=== PATIENT | female | born 1990 | race African-American/Black ===

== ENCOUNTER 2023-06-06 11:28 | Inpatient (IN) | payer OTHER ==
[~2023-06-06] VITALS: Ht 175.3 cm; Wt 64.4 kg
[2023-06-06 12:24] LABS: CREATININE 1.1 mg/dL (0.6-1.3); POTASSIUM 3.8 mmol/L (3.5-5.1)
[2023-06-06 12:31] LABS: ALBUMIN 3.7 g/dL (3.4-5.0); BILIRUBIN,DIRECT 0.4 mg/dL (0.0-0.2); BILIRUBIN,TOTAL 0.6 mg/dL (0.2-1.0); TOTAL PROTEIN, SERUM 9.2 g/dL (6.4-8.2)
[2023-06-06 12:33] LABS: BASOPHILS % (AUTO) 0.6 % (0.0-2.0); CALCIUM, SERUM 15.3 mg/dL (8.5-10.1); EOSINOPHILS # (AUTO) 0.1 K/uL (0.0-0.7); EOSINOPHILS % (AUTO) 0.8 % (0.0-6.0); HEMATOCRIT 33 % (33-45); LYMPHOCYTES # (AUTO) 2.8 K/uL (0.8-4.8); MEAN CORPUSCULAR HEMOGLOBIN 33 PG (26.0-33.0); MEAN CORPUSCULAR HGB CONC 33 g/dl (31.0-36.0); MEAN CORPUSCULAR VOLUME 100 fL (82-100); MONOCYTES # (AUTO) 0.5 K/uL (0.1-1.30); MONOCYTES % (AUTO) 6.4 % (2.0-12.0); NEUTROPHILS # (AUTO) 4.1 K/uL (1.8-8.9); NEUTROPHILS % (AUTO) 54.2 % (43.0-81.0); PLATELET COUNT (AUTO) 223 K/uL (150-450); RED BLOOD CELL COUNT(AUTO) 3.31 MIL/uL (4.0-5.2); RED CELL DISTRIBUTION WIDTH 13.5 % (11.5-15.0); WHITE BLOOD COUNT (AUTO) 7.5 K/uL (4.3-11.0)
[2023-06-06] MEDS: IV NS 0.9% 1,000 ML BAG IV ONE (12:50)
[2023-06-06] MEDS ORDERED: ACETAMINOPHEN 325 MG TABLET PO PRN (13:30)
[2023-06-06] MEDS ORDERED: MAG HYDROX/AL HYDROX/SIMETH 30 ML UDC PO PRN (13:30)
[2023-06-06] MEDS ORDERED: ZOLPIDEM TARTRATE 5 MG TABLET PO PRN (13:30)
[2023-06-06] MEDS ORDERED: Z GUARD REMEDY 4 OZ OINT TP PRN (13:30)
[2023-06-06] MEDS ORDERED: ONDANSETRON HCL/PF 4 MG/2 ML VIAL IVP PRN (13:30)
[2023-06-06] MEDS ORDERED: MAGNESIUM HYDROXIDE 30 ML UDC PO PRN (13:30)
[2023-06-06] MEDS ORDERED: ERGO500093 PO (13:34)
[2023-06-06] MEDS ORDERED: ZINC220C6 PO (13:34)
[2023-06-06] MEDS ORDERED: PANT40TA2 PO (13:34)
[2023-06-06] MEDS ORDERED: RIFA550T PO (13:34)
[2023-06-06] MEDS ORDERED: ONDA4TAB5 PO (13:34)
[2023-06-06] MEDS ORDERED: TAMS-12 PO (13:34)
[2023-06-06] MEDS ORDERED: THIA100T88 PO (13:34)
[2023-06-06] MEDS ORDERED: FOLI0.8T3 PO (13:34)
[2023-06-06] MEDS ORDERED: MULT-754 PO (13:34)
[2023-06-06] MEDS ORDERED: LACT10SO3 PO (13:34)
[2023-06-06] MEDS ORDERED: OLAN2.5T3 PO (13:34)
[2023-06-06] MEDS ORDERED: FERR325T23 PO (13:34)
[2023-06-06 14:20] LABS: APPEARANCE,URINE CLEAR (CLEAR); BILIRUBIN,URINE NEGATIVE (NEGATIVE); BLOOD, URINE NEGATIVE Ery/uL (NEGATIVE); COLOR,URINE YELLOW (YELLOW); KETONES,URINE NEGATIVE (NEGATIVE); LEUKOCYTE ESTERASE ,URINE 2+ (NEGATIVE); NITRITE, URINE NEGATIVE (NEGATIVE); PH,URINE 6.5 (5.0-8.0); PROTEIN,URINE NEGATIVE (NEGATIVE); UGLUCOSE NEGATIVE (NEGATIVE); UROBILINOGEN,URINE 0.2 EU/dL (0.2)
[2023-06-06 14:51] LABS: ADD URINE CULTURE YES; BACTERIA,URINE 1+ /HPF (None Seen); RBC,URINE NONE SEEN /HPF (0-2)
[2023-06-06] MEDS: FERROUS SULFATE (325 MG) 325 MG/TAB TABLET PO SCH (18:03)
[2023-06-06] MEDS: LACTULOSE 10 G/15 ML UDC (PYXIS) PO SCH (18:03)
[2023-06-06] MEDS: PANTOPRAZOLE 40 MG TABLET.DR PO SCH (18:05)
[2023-06-06] MEDS: CEFTRIAXONE 1 G in IV D5W 50 ML IV SCH (19:17)
[2023-06-06 20:00] VITALS: BP 115/93; TEMP 98.6; O2SAT 99
[2023-06-06] MEDS: OLANZAPINE 2.5 MG TABLET PO SCH (21:19)
[2023-06-06] MEDS: RIFAXIMIN 550 MG TABLET PO SCH (21:19)
[2023-06-07] MEDS: LACTULOSE 10 G/15 ML UDC (PYXIS) PO SCH ×4 (00:25→17:51)
[2023-06-07 05:53] LABS: BASOPHILS % (AUTO) 0.4 % (0.0-2.0); EOSINOPHILS # (AUTO) 0.1 K/uL (0.0-0.7); HEMATOCRIT 29 % (33-45); HEMOGLOBIN 9.7 g/dL (11.5-14.8); LYMPHOCYTES # (AUTO) 2.2 K/uL (0.8-4.8); LYMPHOCYTES % (AUTO) 36.2 % (20.0-44.0); MEAN CORPUSCULAR HEMOGLOBIN 34 PG (26.0-33.0); MEAN CORPUSCULAR HGB CONC 34 g/dl (31.0-36.0); MEAN CORPUSCULAR VOLUME 100 fL (82-100); MONOCYTES # (AUTO) 0.5 K/uL (0.1-1.30); MONOCYTES % (AUTO) 7.6 % (2.0-12.0); NEUTROPHILS # (AUTO) 3.3 K/uL (1.8-8.9); NEUTROPHILS % (AUTO) 54.8 % (43.0-81.0); PLATELET COUNT (AUTO) 165 K/uL (150-450); RED BLOOD CELL COUNT(AUTO) 2.88 MIL/uL (4.0-5.2); RED CELL DISTRIBUTION WIDTH 13.1 % (11.5-15.0)
[2023-06-07 06:24] LABS: ALBUMIN 3.1 g/dL (3.4-5.0); BILIRUBIN,TOTAL 0.5 mg/dL (0.2-1.0); CREATININE 0.9 mg/dL (0.6-1.3); MAGNESIUM 1.6 mg/dL (1.8-2.4); PHOSPHORUS 3.8 mg/dL (2.5-4.9); POTASSIUM 3.4 mmol/L (3.5-5.1); TOTAL PROTEIN, SERUM 7.7 g/dL (6.4-8.2)
[2023-06-07 06:26] LABS: CALCIUM, SERUM 14.1 mg/dL (8.5-10.1)
[2023-06-07] MEDS: IV NS 0.9% 1,000 ML IV PRN ×2 (06:43→23:35)
[2023-06-07 07:00] VITALS: BP 105/74; TEMP 98.8; O2SAT 100
[2023-06-07] MEDS: FERROUS SULFATE (325 MG) 325 MG/TAB TABLET PO SCH ×2 (08:49→17:43)
[2023-06-07] MEDS: RIFAXIMIN 550 MG TABLET PO SCH ×2 (08:49→21:12)
[2023-06-07] MEDS: OLANZAPINE 2.5 MG TABLET PO SCH ×2 (08:49→21:12)
[2023-06-07] MEDS: PANTOPRAZOLE 40 MG TABLET.DR PO SCH ×2 (08:49→16:44)
[2023-06-07] MEDS: MULTIVITAMINS,THERAGRAN 1 UDTAB TABLET PO SCH (08:50)
[2023-06-07] MEDS: THIAMINE HCL 100 MG TABLET PO SCH (08:50)
[2023-06-07] MEDS: TAMSULOSIN 0.4 MG CAP.SR.24H PO SCH (08:50)
[2023-06-07] MEDS: FOLIC ACID 1 MG TABLET PO SCH (08:50)
[2023-06-07] MEDS ORDERED: POTASSIUM CHLORIDE 10 MEQ TABLET.SA PO ONE (09:00)
[2023-06-07] MEDS ORDERED: MAGNESIUM OXIDE 400 MG TABLET PO ONE (11:30)
[2023-06-07 14:47] LABS: CREATININE 0.9 mg/dL (0.6-1.3); POTASSIUM 3.6 mmol/L (3.5-5.1)
[2023-06-07 15:02] LABS: CALCIUM, SERUM 13.4 mg/dL (8.5-10.1)
[2023-06-07 16:00] VITALS: BP 119/93; TEMP 98.6; O2SAT 99
[2023-06-07] MEDS: CEFTRIAXONE 1 G in IV D5W 50 ML IV SCH (17:43)
[2023-06-07 20:00] VITALS: BP 114/69; TEMP 98.7; O2SAT 99
[2023-06-08] MEDS: LACTULOSE 10 G/15 ML UDC (PYXIS) PO SCH ×4 (01:38→17:27)
[2023-06-08 06:06] LABS: PTH, INTACT 12 pg/mL (15-65)
[2023-06-08 07:00] VITALS: BP 114/86; TEMP 98.4; O2SAT 100
[2023-06-08 07:00] LABS: BASOPHILS % (AUTO) 0.3 % (0.0-2.0); EOSINOPHILS % (AUTO) 0.8 % (0.0-6.0); HEMATOCRIT 28 % (33-45); HEMOGLOBIN 9.4 g/dL (11.5-14.8); LYMPHOCYTES # (AUTO) 1.9 K/uL (0.8-4.8); MEAN CORPUSCULAR HEMOGLOBIN 34 PG (26.0-33.0); MEAN CORPUSCULAR HGB CONC 34 g/dl (31.0-36.0); MEAN CORPUSCULAR VOLUME 100 fL (82-100); MONOCYTES # (AUTO) 0.4 K/uL (0.1-1.30); MONOCYTES % (AUTO) 7.5 % (2.0-12.0); NEUTROPHILS # (AUTO) 2.6 K/uL (1.8-8.9); NEUTROPHILS % (AUTO) 52.4 % (43.0-81.0); PLATELET COUNT (AUTO) 140 K/uL (150-450); RED CELL DISTRIBUTION WIDTH 13.2 % (11.5-15.0)
[2023-06-08 07:27] LABS: CREATINE KINASE, TOTAL 13 U/L (26-192)
[2023-06-08] MEDS: PANTOPRAZOLE 40 MG TABLET.DR PO SCH ×2 (07:33→16:32)
[2023-06-08 07:37] LABS: ALANINE AMINOTRANSFERASE 13 U/L (12-78); ALKALINE PHOSPHATASE 74 U/L (46-116); ASPARTATE AMINOTRANSFERASE 17 U/L (15-37); BILIRUBIN,TOTAL 0.4 mg/dL (0.2-1.0); CARBON DIOXIDE 23 mmol/L (21-32); GLUCOSE 97 mg/dL (74-106); MAGNESIUM 1.7 mg/dL (1.8-2.4); PHOSPHORUS 3.6 mg/dL (2.5-4.9); TOTAL PROTEIN, SERUM 7.4 g/dL (6.4-8.2); UREA NITROGEN, BLOOD 15 mg/dL (7-18)
[2023-06-08 07:47] LABS: CALCIUM, SERUM 13.6 mg/dL (8.5-10.1)
[2023-06-08 08:14] LABS: CHLORIDE 105 mmol/L (98-107); POTASSIUM 3.3 mmol/L (3.5-5.1); SODIUM SERUM 138 mmol/L (136-145)
[2023-06-08] MEDS: FERROUS SULFATE (325 MG) 325 MG/TAB TABLET PO SCH ×2 (09:57→16:46)
[2023-06-08] MEDS: FOLIC ACID 1 MG TABLET PO SCH (09:57)
[2023-06-08] MEDS: TAMSULOSIN 0.4 MG CAP.SR.24H PO SCH (09:57)
[2023-06-08] MEDS: MULTIVITAMINS,THERAGRAN 1 UDTAB TABLET PO SCH (09:57)
[2023-06-08] MEDS: OLANZAPINE 2.5 MG TABLET PO SCH ×2 (09:58→20:24)
[2023-06-08] MEDS: THIAMINE HCL 100 MG TABLET PO SCH (09:58)
[2023-06-08] MEDS: RIFAXIMIN 550 MG TABLET PO SCH ×2 (09:58→20:24)
[2023-06-08] MEDS ORDERED: POTASSIUM CHLORIDE 20 MEQ TAB.PRT.SR PO ONE (12:00)
[2023-06-08] MEDS ORDERED: MAGNESIUM OXIDE 400 MG TABLET PO ONE (12:00)
[2023-06-08] MEDS: IV NS 0.9% 1,000 ML IV PRN (14:02)
[2023-06-08 16:00] VITALS: BP 103/70; TEMP 98.2; O2SAT 99
[2023-06-08] MEDS: CEFTRIAXONE 1 G in IV D5W 50 ML IV SCH (16:46)
[2023-06-08 20:00] VITALS: BP 113/93; TEMP 98.6; O2SAT 99
[2023-06-09] MEDS: LACTULOSE 10 G/15 ML UDC (PYXIS) PO SCH ×5 (01:41→23:41)
[2023-06-09] MEDS: IV NS 0.9% 1,000 ML IV PRN ×2 (04:14→23:51)
[2023-06-09 06:07] LABS: *SPE A/G RATIO 0.8 (0.7-1.7); *SPE ALBUMIN 3.1 g/dL (2.9-4.4); *SPE ALPHA-1-GLOBULIN 0.3 g/dL (0.0-0.4); *SPE ALPHA-2-GLOBULIN 0.6 g/dL (0.4-1.0); *SPE GLOBULIN, TOTAL 4.1 g/dL (2.2-3.9); *SPE M-SPIKE Not Observed g/dL (Not Observed); *SPE PROTEIN TOTAL 7.2 g/dL (6.0-8.5); *SPEGAMMA GLOBULIN 2.2 g/dL (0.4-1.8)
[2023-06-09 06:48] LABS: BASOPHILS % (AUTO) 0.2 % (0.0-2.0); EOSINOPHILS # (AUTO) 0.1 K/uL (0.0-0.7); EOSINOPHILS % (AUTO) 1.2 % (0.0-6.0); HEMATOCRIT 28 % (33-45); HEMOGLOBIN 9.3 g/dL (11.5-14.8); LYMPHOCYTES # (AUTO) 1.9 K/uL (0.8-4.8); LYMPHOCYTES % (AUTO) 36.9 % (20.0-44.0); MEAN CORPUSCULAR HEMOGLOBIN 34 PG (26.0-33.0); MEAN CORPUSCULAR HGB CONC 33 g/dl (31.0-36.0); MEAN CORPUSCULAR VOLUME 101 fL (82-100); MONOCYTES # (AUTO) 0.4 K/uL (0.1-1.30); MONOCYTES % (AUTO) 7.8 % (2.0-12.0); NEUTROPHILS # (AUTO) 2.8 K/uL (1.8-8.9); NEUTROPHILS % (AUTO) 53.9 % (43.0-81.0); PLATELET COUNT (AUTO) 145 K/uL (150-450); RED BLOOD CELL COUNT(AUTO) 2.78 MIL/uL (4.0-5.2); WHITE BLOOD COUNT (AUTO) 5.1 K/uL (4.3-11.0)
[2023-06-09 07:07] LABS: IMMUNOGLOBULIN A, SERUM 318 mg/dL (87-352); IMMUNOGLOBULIN G, SERUM 1974 mg/dL (586-1602); IMMUNOGLOBULIN M, SERUM 212 mg/dL (26-217)
[2023-06-09 07:20] LABS: ALBUMIN 3.1 g/dL (3.4-5.0); BILIRUBIN,TOTAL 0.4 mg/dL (0.2-1.0); TOTAL PROTEIN, SERUM 7.6 g/dL (6.4-8.2)
[2023-06-09 07:30] VITALS: BP 120/93; TEMP 98.6; O2SAT 100
[2023-06-09] MEDS: PANTOPRAZOLE 40 MG TABLET.DR PO SCH ×2 (07:40→16:29)
[2023-06-09] MEDS: MULTIVITAMINS,THERAGRAN 1 UDTAB TABLET PO SCH (08:08)
[2023-06-09] MEDS: TAMSULOSIN 0.4 MG CAP.SR.24H PO SCH (08:08)
[2023-06-09] MEDS: FERROUS SULFATE (325 MG) 325 MG/TAB TABLET PO SCH ×2 (08:08→16:29)
[2023-06-09] MEDS: OLANZAPINE 2.5 MG TABLET PO SCH ×2 (08:08→21:41)
[2023-06-09] MEDS: RIFAXIMIN 550 MG TABLET PO SCH ×2 (08:08→21:41)
[2023-06-09] MEDS: THIAMINE HCL 100 MG TABLET PO SCH (08:08)
[2023-06-09] MEDS: FOLIC ACID 1 MG TABLET PO SCH (08:10)
[2023-06-09 08:16] LABS: POTASSIUM 3.5 mmol/L (3.5-5.1)
[2023-06-09 08:40] LABS: CREATININE 1.1 mg/dL (0.6-1.3)
[2023-06-09] MEDS ORDERED: PAMIDRONATE 90 MG in IV NS 0.9% 500 ML IV ONE (10:30)
[2023-06-09] MEDS: CEFTRIAXONE 1 G in IV D5W 50 ML IV SCH (16:30)
[2023-06-09 20:00] VITALS: BP 120/94; TEMP 98.6; O2SAT 100
[2023-06-10] MEDS: LACTULOSE 10 G/15 ML UDC (PYXIS) PO SCH ×3 (06:42→17:22)
[2023-06-10 06:53] LABS: BASOPHILS % (AUTO) 0.2 % (0.0-2.0); EOSINOPHILS # (AUTO) 0.1 K/uL (0.0-0.7); EOSINOPHILS % (AUTO) 1.2 % (0.0-6.0); HEMATOCRIT 27 % (33-45); HEMOGLOBIN 9.1 g/dL (11.5-14.8); LYMPHOCYTES # (AUTO) 1.1 K/uL (0.8-4.8); LYMPHOCYTES % (AUTO) 24.4 % (20.0-44.0); MEAN CORPUSCULAR HEMOGLOBIN 34 PG (26.0-33.0); MEAN CORPUSCULAR HGB CONC 34 g/dl (31.0-36.0); MEAN CORPUSCULAR VOLUME 100 fL (82-100); MONOCYTES # (AUTO) 0.3 K/uL (0.1-1.30); MONOCYTES % (AUTO) 7.4 % (2.0-12.0); NEUTROPHILS # (AUTO) 3.1 K/uL (1.8-8.9); NEUTROPHILS % (AUTO) 66.8 % (43.0-81.0); PLATELET COUNT (AUTO) 126 K/uL (150-450); RED BLOOD CELL COUNT(AUTO) 2.71 MIL/uL (4.0-5.2); RED CELL DISTRIBUTION WIDTH 12.8 % (11.5-15.0); WHITE BLOOD COUNT (AUTO) 4.7 K/uL (4.3-11.0)
[2023-06-10 07:06] LABS: CALCIUM, SERUM 12.4 mg/dL (8.5-10.1); MAGNESIUM 1.5 mg/dL (1.8-2.4); PHOSPHORUS 3.3 mg/dL (2.5-4.9); POTASSIUM 3.3 mmol/L (3.5-5.1)
[2023-06-10] MEDS ORDERED: POTASSIUM CHLORIDE 20 MEQ TAB.PRT.SR PO ONE (07:30)
[2023-06-10] MEDS ORDERED: MAGNESIUM OXIDE 400 MG TABLET PO ONE (07:30)
[2023-06-10 08:00] VITALS: BP 122/97; TEMP 98.4; O2SAT 97
[2023-06-10] MEDS: PANTOPRAZOLE 40 MG TABLET.DR PO SCH ×2 (08:27→16:30)
[2023-06-10] MEDS: TAMSULOSIN 0.4 MG CAP.SR.24H PO SCH (08:27)
[2023-06-10] MEDS: THIAMINE HCL 100 MG TABLET PO SCH (08:27)
[2023-06-10] MEDS: FERROUS SULFATE (325 MG) 325 MG/TAB TABLET PO SCH ×2 (08:27→16:30)
[2023-06-10] MEDS: MULTIVITAMINS,THERAGRAN 1 UDTAB TABLET PO SCH (08:27)
[2023-06-10] MEDS: FOLIC ACID 1 MG TABLET PO SCH (08:27)
[2023-06-10] MEDS: OLANZAPINE 2.5 MG TABLET PO SCH ×2 (08:27→20:09)
[2023-06-10] MEDS: RIFAXIMIN 550 MG TABLET PO SCH ×2 (08:30→20:09)
[2023-06-10 11:09] LABS: CALCITRIOL VIT D,1, 25 DIHYDRO 6.4 pg/mL (24.8-81.5); VIT D, 25-HYDROXY 27.4 ng/mL (30.0-100.0)
[2023-06-10 12:07] LABS: FREE KAPPA LT CHAINS SERUM 60.7 mg/L (3.3-19.4); FREE LAMBDA LT CHAIN SERUM 21.1 mg/L (5.7-26.3); KAPPA/LAMBDA RATIO SERUM 2.88 (0.26-1.65)
[2023-06-10] MEDS: CHOLECALCIFEROL 1,000 UNIT TABLET (VIT D3) PO SCH (12:32)
[2023-06-10] MEDS: IV NS 0.9% 1,000 ML IV PRN (13:18)
[2023-06-10 16:00] VITALS: BP 120/84; TEMP 98.4; O2SAT 98
[2023-06-10] MEDS: CEFTRIAXONE 1 G in IV D5W 50 ML IV SCH (16:30)
[2023-06-10 20:00] VITALS: BP 121/92; TEMP 98.6; O2SAT 98
[2023-06-11] MEDS: LACTULOSE 10 G/15 ML UDC (PYXIS) PO SCH ×4 (00:22→17:02)
[2023-06-11] MEDS: IV NS 0.9% 1,000 ML IV PRN ×2 (04:26→21:18)
[2023-06-11 06:25] LABS: BASOPHILS % (AUTO) 0.4 % (0.0-2.0); EOSINOPHILS # (AUTO) 0.1 K/uL (0.0-0.7); EOSINOPHILS % (AUTO) 1.9 % (0.0-6.0); HEMATOCRIT 26 % (33-45); HEMOGLOBIN 8.9 g/dL (11.5-14.8); LYMPHOCYTES # (AUTO) 1.3 K/uL (0.8-4.8); LYMPHOCYTES % (AUTO) 36.6 % (20.0-44.0); MEAN CORPUSCULAR HEMOGLOBIN 34 PG (26.0-33.0); MEAN CORPUSCULAR HGB CONC 34 g/dl (31.0-36.0); MEAN CORPUSCULAR VOLUME 99 fL (82-100); MONOCYTES # (AUTO) 0.3 K/uL (0.1-1.30); MONOCYTES % (AUTO) 9.6 % (2.0-12.0); NEUTROPHILS # (AUTO) 1.8 K/uL (1.8-8.9); NEUTROPHILS % (AUTO) 51.5 % (43.0-81.0); PLATELET COUNT (AUTO) 113 K/uL (150-450); RED BLOOD CELL COUNT(AUTO) 2.64 MIL/uL (4.0-5.2); RED CELL DISTRIBUTION WIDTH 13.3 % (11.5-15.0); WHITE BLOOD COUNT (AUTO) 3.6 K/uL (4.3-11.0)
[2023-06-11 06:50] LABS: CALCIUM, SERUM 10.3 mg/dL (8.5-10.1); POTASSIUM 4.1 mmol/L (3.5-5.1)
[2023-06-11 08:00] VITALS: BP 99/71; TEMP 98.1; O2SAT 100
[2023-06-11] MEDS: FERROUS SULFATE (325 MG) 325 MG/TAB TABLET PO SCH ×2 (08:21→16:27)
[2023-06-11] MEDS: CHOLECALCIFEROL 1,000 UNIT TABLET (VIT D3) PO SCH (08:21)
[2023-06-11] MEDS: THIAMINE HCL 100 MG TABLET PO SCH (08:21)
[2023-06-11] MEDS: TAMSULOSIN 0.4 MG CAP.SR.24H PO SCH (08:21)
[2023-06-11] MEDS: OLANZAPINE 2.5 MG TABLET PO SCH ×2 (08:21→21:14)
[2023-06-11] MEDS: MULTIVITAMINS,THERAGRAN 1 UDTAB TABLET PO SCH (08:21)
[2023-06-11] MEDS: RIFAXIMIN 550 MG TABLET PO SCH ×2 (08:21→21:14)
[2023-06-11] MEDS: FOLIC ACID 1 MG TABLET PO SCH (08:21)
[2023-06-11] MEDS: PANTOPRAZOLE 40 MG TABLET.DR PO SCH ×2 (08:21→16:27)
[2023-06-11 16:00] VITALS: BP 105/78; TEMP 98.5; O2SAT 100
[2023-06-11] MEDS: CEFTRIAXONE 1 G in IV D5W 50 ML IV SCH (16:28)
[2023-06-11 20:00] VITALS: BP 110/84; TEMP 99; O2SAT 100
[2023-06-12] MEDS: LACTULOSE 10 G/15 ML UDC (PYXIS) PO SCH ×4 (00:57→18:40)
[2023-06-12 06:40] LABS: BASOPHILS % (AUTO) 0.3 % (0.0-2.0); EOSINOPHILS # (AUTO) 0.1 K/uL (0.0-0.7); EOSINOPHILS % (AUTO) 1.8 % (0.0-6.0); HEMATOCRIT 27 % (33-45); HEMOGLOBIN 9.1 g/dL (11.5-14.8); LYMPHOCYTES # (AUTO) 1.5 K/uL (0.8-4.8); LYMPHOCYTES % (AUTO) 43.1 % (20.0-44.0); MEAN CORPUSCULAR HEMOGLOBIN 34 PG (26.0-33.0); MEAN CORPUSCULAR HGB CONC 34 g/dl (31.0-36.0); MEAN CORPUSCULAR VOLUME 100 fL (82-100); MONOCYTES # (AUTO) 0.4 K/uL (0.1-1.30); MONOCYTES % (AUTO) 10.8 % (2.0-12.0); NEUTROPHILS # (AUTO) 1.6 K/uL (1.8-8.9); PLATELET COUNT (AUTO) 118 K/uL (150-450); RED BLOOD CELL COUNT(AUTO) 2.71 MIL/uL (4.0-5.2); RED CELL DISTRIBUTION WIDTH 13.3 % (11.5-15.0); WHITE BLOOD COUNT (AUTO) 3.5 K/uL (4.3-11.0)
[2023-06-12 06:56] LABS: BILIRUBIN,TOTAL 0.4 mg/dL (0.2-1.0); CREATININE 0.8 mg/dL (0.6-1.3); MAGNESIUM 1.7 mg/dL (1.8-2.4); PHOSPHORUS 2.2 mg/dL (2.5-4.9); POTASSIUM 3.5 mmol/L (3.5-5.1); TOTAL PROTEIN, SERUM 7.1 g/dL (6.4-8.2)
[2023-06-12 08:00] VITALS: BP 95/57; TEMP 99.3; O2SAT 98
[2023-06-12] MEDS: PANTOPRAZOLE 40 MG TABLET.DR PO SCH ×2 (08:42→16:26)
[2023-06-12] MEDS: MULTIVITAMINS,THERAGRAN 1 UDTAB TABLET PO SCH (08:42)
[2023-06-12] MEDS: FERROUS SULFATE (325 MG) 325 MG/TAB TABLET PO SCH ×2 (08:42→16:26)
[2023-06-12] MEDS: OLANZAPINE 2.5 MG TABLET PO SCH ×2 (08:42→21:24)
[2023-06-12] MEDS: THIAMINE HCL 100 MG TABLET PO SCH (08:42)
[2023-06-12] MEDS: FOLIC ACID 1 MG TABLET PO SCH (08:42)
[2023-06-12] MEDS: CHOLECALCIFEROL 1,000 UNIT TABLET (VIT D3) PO SCH (08:42)
[2023-06-12] MEDS: RIFAXIMIN 550 MG TABLET PO SCH ×2 (08:43→21:24)
[2023-06-12] MEDS: TAMSULOSIN 0.4 MG CAP.SR.24H PO SCH (08:44)
[2023-06-12] MEDS ORDERED: MAGNESIUM OXIDE 400 MG TABLET PO ONE (10:00)
[2023-06-12] MEDS: IV NS 0.9% 1,000 ML IV PRN (11:35)
[2023-06-12 16:00] VITALS: BP 111/80; TEMP 98.3; O2SAT 100
[2023-06-12] MEDS: CEFTRIAXONE 1 G in IV D5W 50 ML IV SCH (16:27)
[2023-06-12] MEDS ORDERED: K PHOS NEUTRAL 250 MG TABLET PO ONE (16:30)
[2023-06-12 20:00] VITALS: BP 105/79; TEMP 98.2; O2SAT 98
[2023-06-13 07:00] VITALS: BP 107/76; TEMP 98.1; O2SAT 99
[2023-06-13] MEDS: PANTOPRAZOLE 40 MG TABLET.DR PO SCH ×2 (07:51→15:44)
[2023-06-13] MEDS: CHOLECALCIFEROL 1,000 UNIT TABLET (VIT D3) PO SCH (08:23)
[2023-06-13] MEDS: IV NS 0.9% 1,000 ML IV PRN (08:23)
[2023-06-13] MEDS: RIFAXIMIN 550 MG TABLET PO SCH (08:24)
[2023-06-13] MEDS: FOLIC ACID 1 MG TABLET PO SCH (08:24)
[2023-06-13] MEDS: MULTIVITAMINS,THERAGRAN 1 UDTAB TABLET PO SCH (08:24)
[2023-06-13] MEDS: FERROUS SULFATE (325 MG) 325 MG/TAB TABLET PO SCH ×2 (08:24→17:13)
[2023-06-13] MEDS: THIAMINE HCL 100 MG TABLET PO SCH (08:24)
[2023-06-13] MEDS: OLANZAPINE 2.5 MG TABLET PO SCH (08:24)
[2023-06-13] MEDS: TAMSULOSIN 0.4 MG CAP.SR.24H PO SCH (08:25)
[2023-06-13 08:38] LABS: CALCIUM, SERUM 8.1 mg/dL (8.5-10.1); CREATININE 0.8 mg/dL (0.6-1.3); PHOSPHORUS 2.2 mg/dL (2.5-4.9); POTASSIUM 3.7 mmol/L (3.5-5.1)
[2023-06-13] MEDS: LACTULOSE 10 G/15 ML UDC (PYXIS) PO SCH ×3 (12:06→17:13)
[2023-06-13] MEDS ORDERED: CHOL100040 PO (12:54)
[2023-06-13] MEDS ORDERED: TETR-66 PO (12:54)
[2023-06-13] MEDS ORDERED: TETRACYCLINE HCL 250 MG CAPSULE PO SCH (13:00)
[2023-06-13] MEDS ORDERED: K PHOS NEUTRAL 250 MG TABLET PO ONE (15:30)
[2023-06-13 16:00] VITALS: BP 111/88; TEMP 98.2; O2SAT 100
[2023-06-13] MEDS: CEFTRIAXONE 1 G in IV D5W 50 ML IV SCH (17:00)
== END 2023-06-13 19:01 | DRG 463 ==
LOC: ER 11:39 → MED 16:17
PROVIDERS: ADMIT Nurse Practitioner Acute Care; ATTEND Nurse Practitioner Family
DX: N39.0 Urinary tract infection, site not specified (principal); E87.1 Hypo-osmolality and hyponatremia; K74.60 Unspecified cirrhosis of liver; E83.52 Hypercalcemia; E83.42 Hypomagnesemia; K59.00 Constipation, unspecified; B96.20 Unspecified Escherichia coli [E. coli] as the cause of diseases classified elsewhere; F99 Mental disorder, not otherwise specified; R53.1 Weakness; F10.21 Alcohol dependence, in remission; R78.89 Finding of other specified substances, not normally found in blood; E87.6 Hypokalemia; E55.9 Vitamin D deficiency, unspecified
CPT/HCPCS: 36415; 71045-TC; 77075-TC; 80048-TC; 80053-TC; 80076-TC; 81001; 82140-TC; 82306; 82550-TC; 82652; 82784; 83735-TC; 83970; 84100-TC; 84155; 84165; 85025-TC; 86334; 87081-TC; 87086-TC; 97110-TC; 97112-TC; 97116-TC; 97530-TC; 97535-TC; A4223; G0378; J0696; J2430; J7030; J7040; J7050; J7060